=== PATIENT | male | born 1935 | race Caucasian/White ===

== ENCOUNTER 2023-03-09 11:28 | Observation (INO) ==
[2023-03-09 12:59] LABS: ABS Eosinophils 0.1 10^3/uL (0.0-0.5); ABS Lymphocytes 0.9 10^3/uL (1.0-4.8); ABS Monocytes 0.9 10^3/uL (0.0-1.1); ABS Neutrophils 6.2 10^3/uL (1.5-7.6); Eosinophil % 0.7 %; Hemoglobin 12.2 g/dL (13.2-16.3); Lymphocyte % 11.6 %; Mean Corpuscular Hemoglobin 30.7 pg (27-33); Mean Corpuscular Volume 90.3 fL (80-97); Mean Platelet Volume 8.3 fL (7.5-11.2); Platelet Count 144 10^3/uL (150-450); Red Blood Count 3.98 10^6/uL (4.06-5.63); Red Cell Distribution Width 14.6 % (12-17); White Blood Count 8.1 10^3/uL (3.6-10.2)
[2023-03-09 13:07] LABS: Activated Partial Thrombo Time 30.6 seconds (26.0-38.0); INR 1.09 (0.83-1.13)
[2023-03-09 13:27] LABS: Albumin 4.2 g/dL (3.2-5.2); Albumin/Globulin Ratio 1.3 (1-3); Calcium 9.3 mg/dL (8.6-10.3); Creatinine, Serum 2.04 mg/dL (0.67-1.17); Globulin 3.2 g/dL (2-4); Potassium 5.2 mmol/L (3.5-5.0); Total Bilirubin 0.8 mg/dL (0.2-1.0); Total Protein 7.4 g/dL (6.4-8.9)
[2023-03-09] MEDS ORDERED: Lactated Ringers 1000 ml BAG 1,000 ML IV ONE (15:13)
[2023-03-09] MEDS ORDERED: Iodixanol (CONTRAST) 320 MG/ML 100 ML SDV IV ONE (15:18)
[2023-03-10 06:56] LABS: Calcium 8.8 mg/dL (8.6-10.3); Creatinine, Serum 1.53 mg/dL (0.67-1.17); Potassium 4.8 mmol/L (3.5-5.0); eGFR CKD-EPI 43.7 (>60)
[2023-03-10 13:07] VITALS: BP 106/53
== END 2023-03-10 11:25 | disposition home or self-care (01) ==
LOC: ED 11:28 → EDHOLD 11:28 → MEDTELE 17:08
PROVIDERS: ADMIT Student in an Organized Health Care Education/Training Program; ATTEND Student in an Organized Health Care Education/Training Program